=== PATIENT | female | born 1970 | race Two or more races ===

== ENCOUNTER 2024-06-02 18:30 | Emergency (ER) | payer OTHER ==
[2024-06-02 18:45] VITALS: TEMP 98.4; BMI 35.4
[2024-06-02] MEDS ORDERED: TRANEXAMIC ACID 1000 MG/10 ML VIAL ONE (19:03)
[2024-06-02 19:47] LABS: BASO % 1.1 % (0-2.0); EOS % 2.2 % (0-4.5); HEMOGLOBIN 12.7 GM/dL (10.7-15.3); LYMPH % 32.8 % (8-40); MCH 27.6 pg (25.7-33.7); MCHC 32.6 g/dl (32.0-36.0); MEAN CELL VOLUME 84.7 fl (80-96); MONO % 5.5 % (3.8-10.2); NEUT % 58.4 % (42.8-82.8); PLATELET COUNT 359 10^3/uL (134-434); RBC 4.61 M/mm3 (3.60-5.2); RDW 14.3 % (11.6-15.6); WHITE BLOOD COUNT 9.7 K/mm3 (4.0-10.0)
[2024-06-02 19:50] LABS: INR 1.01 (0.83-1.09); PROTHROMBIN TIME (PATIENT) 11.6 SEC (9.7-13.0)
[2024-06-02 19:53] LABS: ACTIVATED PTT 39.8 SECONDS (25.2-36.5)
[2024-06-02] MEDS: TRANEXAMIC ACID 1000 MG/10 ML VIAL IVPUSH ONE (19:55)
[2024-06-02 20:17] LABS: POTASSIUM 4.3 mmol/L (3.5-5.1)
[2024-06-02 20:19] LABS: ALBUMIN 3.8 g/dl (3.4-5.0); CALCIUM 9.4 mg/dL (8.5-10.1)
[2024-06-02 20:23] LABS: CREATININE 0.8 mg/dL (0.55-1.3)
[2024-06-02 20:24] LABS: BILIRUBIN,TOTAL 0.3 mg/dL (0.2-1); TOT PROT 7.6 g/dl (6.4-8.2)
[2024-06-02] MEDS ORDERED: ONDANSETRON 4 MG/2 ML VIAL ONE (22:14)
[2024-06-02] MEDS: ONDANSETRON 4 MG/2 ML VIAL IVPUSH ONE (22:17)
[2024-06-02 22:44] VITALS: BP 109/54; PULSE 64; RESP 16
== END 2024-06-02 23:00 | disposition short-term general hospital (02) ==
LOC: JER 18:30
PROC: 3E033GC Introduction of Other Therapeutic Substance into Peripheral Vein, Percutaneous Approach (ICD-10-PCS; principal; 2024-06-02)
PROC: 3E033GC Introduction of Other Therapeutic Substance into Peripheral Vein, Percutaneous Approach (ICD-10-PCS; 2024-06-02)
DX: R04.0 Epistaxis (principal); Z20.822 Contact with and (suspected) exposure to COVID-19
CPT/HCPCS: 0241U-QW; 36415; 80053; 85025; 85610; 85730; 86850; 86900; 86901; 99285-25